=== PATIENT | female | born 2000 | race Caucasian/White ===

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

== ENCOUNTER 2018-01-29 16:46 | Emergency (ER) | payer OTHER ==
[2018-01-29] MEDS ORDERED: SODIUM CHLORIDE 0.9% 1,000 ML IV STA (19:10)
--- NOTE | 2018-01-29 19:20 | ED ---
General Adult HPI - General Chief complaint: Abdominal Pain Stated complaint: abd pain, Time Seen by Provider: 01/29/18 19:01 Source: patient, RN notes reviewed Mode of arrival: wheelchair Limitations: no limitations - History of Present Illness Initial comments: 17-year-old female presents to the emergency department for a chief complaint of abdominal pain 3 days with . Patient does have a history of a miscarriage at 4 months about one year ago. Patient describes the pain as a sharp cramping pain in the bilateral lower abdomen. Patient states the pain changes from an 8 to a 9 out of 10. Patient denies any vaginal bleeding whatsoever. Patient denies any vaginal discharge. Patient denies any urinary symptoms or pain with urination. Patient last had a normal bowel movement today. Patient denies diarrhea. Patient states her last menstrual cycle was the end of November. Patient states she does not have insurance so has not seen an OB. Patient states she has a prescription for vitamins but has not filled it because she has no insurance. Patient states she does not want to take any medications including Tylenol in her .Patient has no other complaints at this time including shortness of breath, chest pain, abdominal pain, nausea or vomiting, headache, or visual changes. - Related Data Previous Rx's Medication Instructions Recorded Cephalexin [Keflex] 500 mg PO Q6H 10 Days capsule 01/29/18 Allergies Allergy/AdvReac Type Severity Reaction Status Date / Time No Known Allergies Allergy Verified 01/29/18 17:11 Review of Systems ROS Statement: Those systems with pertinent positive or pertinent negative responses have been documented in the HPI. ROS Other: All systems not noted in ROS Statement are negative. Past Medical History Past Medical History: Coronary Artery Disease (CAD) History of Any Multi-Drug Resistant Organisms: None Reported Additional Past Surgical History / Comment(s): open heart surgery Past Psychological History: No Psychological Hx Reported Smoking Status: Never smoker Past Alcohol Use History: None Reported Past Drug Use History: None Reported General Exam Limitations: no limitations General appearance: alert, in no apparent distress Head exam: Present: atraumatic, normocephalic, normal inspection Eye exam: Present: normal appearance. Absent: scleral icterus, conjunctival injection ENT exam: Present: normal exam, mucous membranes moist Neck exam: Present: normal inspection, full ROM. Absent: tenderness, meningismus, lymphadenopathy Respiratory exam: Present: normal lung sounds bilaterally. Absent: respiratory distress, wheezes, rales, rhonchi, stridor Cardiovascular Exam: Present: regular rate, normal rhythm, normal heart sounds. Absent: systolic murmur, diastolic murmur, rubs, gallop, clicks GI/Abdominal exam: Present: soft, tenderness (RLQ and LLQ tenderness. suprapubic tenderness.), normal bowel sounds. Absent: distended, guarding, rebound, rigid, other (negative obturator sign, negative psoas sign. Negative Jiménez sign.) External exam: Present: normal external exam. Absent: erythema, swelling, lesions, lacerations, ecchymosis Speculum exam: Present: normal speculum exam, other (cervical os appears closed) . Absent: erythema, vaginal discharge, cervical discharge, vaginal bleeding, foreign body, tissue, laceration Back exam: Absent: CVA tenderness (R), CVA tenderness (L) Neurological exam: Present: alert, oriented X3, CN II-XII intact Psychiatric exam: Present: normal affect, normal mood Course Vital Signs 01/29/18 01/29/18 17:09 19:28 Temperature 98.5 F Pulse Rate 87 76 Respiratory 18 16 Rate Blood Pressure 109/72 106/72 O2 Sat by Pulse 98 99 Oximetry Medical Decision Making - Medical Decision Making 17-year-old female presents to the emergency department for a chief complaint of abdominal pain 3 days with . Patient states her last menstrual cycle was at the end of November. Patient states she has been nauseous and only vomited once. Patient does not want any medications for nausea or pain. Patient does have a history of miscarriage about one year ago. Patient did have a hCG on 12/27/2017 which was 407. HCG doubled to 860 two days later. Vitals are stable. Patient has mild lower abdominal tenderness with suprapubic tenderness. No vaginal bleeding noted on speculum exam. CBC within normal limits. CMP unremarkable. Patient does have a urinary tract infection according to urinalysis and will be treated with Keflex. No CVA tenderness or back pain at this time. Ultrasound shows a viable intrauterine 8 weeks with a heart rate of 168. HCG Quant 138,654. At this time patient will be discharged home with an intrauterine no vaginal bleeding with a prescription for repeat beta hCG as well as Keflex for urinary tract infection. Patient states she would like to have the beta hCG repeated because it makes her feel more comfortable. Patient educated to return to the emergency Department if she has any worsening symptoms or fevers or vaginal bleeding. - Lab Data Result diagrams: 01/29/18 20:50 01/29/18 20:50 Lab Results 01/29/18 01/29/18 01/29/18 Range/Units 19:37 19:37 20:50 WBC (4.0-11.0) k/uL RBC (3.80-5.40) m/uL Hgb (11.4-16.0) gm/dL Hct (34.0-46.0) % MCV (80.0-100.0) fL MCH (25.0-35.0) pg MCHC (31.0-37.0) g/dL RDW (11.5-15.5) % Plt Count (150-450) k/uL Neutrophils % % Lymphocytes % % Monocytes % % Eosinophils % % Basophils % % Neutrophils # (1.3-7.7) k/uL Lymphocytes # (1.0-4.8) k/uL Monocytes # (0-1.0) k/uL Eosinophils # (0-0.7) k/uL Basophils # (0-0.2) k/uL Sodium 136 L (137-145) mmol/L Potassium 4.0 (3.5-5.1) mmol/L Chloride 106 (98-107) mmol/L Carbon Dioxide 19 L (22-30) mmol/L Anion Gap 11 mmol/L BUN 6 L (7-17) mg/dL Creatinine 0.50 L (0.52-1.04) mg/dL Est GFR (CKD-EPI)AfAm >90 (>60 ml/min/1.73 sqM) Est GFR (CKD-EPI)NonAf >90 (>60 ml/min/1.73 sqM) Glucose 95 (74-99) mg/dL Calcium 9.3 (8.4-10.2) mg/dL Total Bilirubin 0.3 (0.2-1.3) mg/dL AST 24 (14-36) U/L ALT 17 (9-52) U/L Alkaline Phosphatase 61 (38-126) U/L Total Protein 7.2 (6.3-8.2) g/dL Albumin 4.4 (3.5-5.0) g/dL Amylase 55 (30-110) U/L Lipase 71 (23-300) U/L HCG, Quant 959315.0 mIU/mL Urine Color Yellow Urine Appearance Cloudy H (Clear) Urine pH 6.0 (5.0-8.0) Ur Specific [place] 1.015 (1.001-1.035) Urine Protein Trace H (Negative) Urine Glucose (UA) Negative (Negative) Urine Ketones Negative (Negative) Urine Blood Moderate H (Negative) Urine Nitrite Negative (Negative) Urine Bilirubin Negative (Negative) Urine Urobilinogen <2.0 (<2.0) mg/dL Ur Leukocyte Esterase Large H (Negative) Urine RBC 48 H (0-5) /hpf Urine WBC 175 H (0-5) /hpf Ur Squamous Epith Cells 3 (0-4) /hpf Urine Mucus Moderate H (None) /hpf Urine HCG, Qual Detected (Not Detectd) 01/29/18 Range/Units 20:50 WBC 9.5 (4.0-11.0) k/uL RBC 4.77 (3.80-5.40) m/uL Hgb 14.0 (11.4-16.0) gm/dL Hct 41.7 (34.0-46.0) % MCV 87.6 (80.0-100.0) fL MCH 29.5 (25.0-35.0) pg MCHC 33.6 (31.0-37.0) g/dL RDW 12.9 (11.5-15.5) % Plt Count 274 (150-450) k/uL Neutrophils % 78 % Lymphocytes % 14 % Monocytes % 5 % Eosinophils % 2 % Basophils % 0 % Neutrophils # 7.4 (1.3-7.7) k/uL Lymphocytes # 1.4 (1.0-4.8) k/uL Monocytes # 0.5 (0-1.0) k/uL Eosinophils # 0.2 (0-0.7) k/uL Basophils # 0.0 (0-0.2) k/uL Sodium (137-145) mmol/L Potassium (3.5-5.1) mmol/L Chloride (98-107) mmol/L Carbon Dioxide (22-30) mmol/L Anion Gap mmol/L BUN (7-17) mg/dL Creatinine (0.52-1.04) mg/dL Est GFR (CKD-EPI)AfAm (>60 ml/min/1.73 sqM) Est GFR (CKD-EPI)NonAf (>60 ml/min/1.73 sqM) Glucose (74-99) mg/dL Calcium (8.4-10.2) mg/dL Total Bilirubin (0.2-1.3) mg/dL AST (14-36) U/L ALT (9-52) U/L Alkaline Phosphatase (38-126) U/L Total Protein (6.3-8.2) g/dL Albumin (3.5-5.0) g/dL Amylase (30-110) U/L Lipase (23-300) U/L HCG, Quant mIU/mL Urine Color Urine Appearance (Clear) Urine pH (5.0-8.0) Ur Specific [place] (1.001-1.035) Urine Protein (Negative) Urine Glucose (UA) (Negative) Urine Ketones (Negative) Urine Blood (Negative) Urine Nitrite (Negative) Urine Bilirubin (Negative) Urine Urobilinogen (<2.0) mg/dL Ur Leukocyte Esterase (Negative) Urine RBC (0-5) /hpf Urine WBC (0-5) /hpf Ur Squamous Epith Cells (0-4) /hpf Urine Mucus (None) /hpf Urine HCG, Qual (Not Detectd) Disposition Clinical Impression: Abdominal pain, Intrauterine Disposition: HOME SELF-CARE Condition: Good Instructions: Abdominal Pain in (ED) Additional Instructions: Please repeat beta hCG in 2 days. Please follow-up with OB in 1-2 days. Take vitamins. Return to the emergency department if you have any worsening symptoms or vaginal bleeding. Prescriptions: Cephalexin [Keflex] 500 mg PO Q6H 10 Days capsule Is patient prescribed a controlled substance at d/c from ED?: No Referrals: Ramona Powell MD [Primary Care Provider] - 1-2 days Tika Mak DO [Doctor of Osteopathic Medicine] - 1-2 days Time of Disposition: 23:17
[2018-01-29 19:29] VITALS: RESP 16
[2018-01-29 20:34] LABS: Appearance,Urine Cloudy (Clear); Bilirubin,Urine Negative (Negative); Blood,Urine Moderate (Negative); Color,Urine Yellow; Glucose,Urine (UA) Negative (Negative); Ketones,Urine Negative (Negative); Leukocyte Esterase,Urine Large (Negative); Mucus,Urine Moderate /hpf; Nitrite,Urine Negative (Negative); Protein,Urine Trace (Negative); RBC,Urine 48 /hpf (0-5); Specific Gravity,Urine 1.015 (1.001-1.035); Squamous Epithelial Cell,Urine 3 /hpf (0-4); Urobilinogen,Urine <2.0 mg/dL (<2.0); WBC,Urine 175 /hpf (0-5)
[2018-01-29 20:57] LABS: Basophils % (A) 0 %; Eosinophils # (A) 0.2 k/uL (0-0.7); Eosinophils % (A) 2 %; HCT 41.7 % (34.0-46.0); Lymphocytes # (A) 1.4 k/uL (1.0-4.8); Lymphocytes % (A) 14 %; MCH 29.5 pg (25.0-35.0); MCHC 33.6 g/dL (31.0-37.0); MCV 87.6 fL (80.0-100.0); Mean Platelet Volume 6.6; Monocytes # (A) 0.5 k/uL (0-1.0); Monocytes % (A) 5 %; Neutrophils # (A) 7.4 k/uL (1.3-7.7); Neutrophils % (A) 78 %; Platelet Count 274 k/uL (150-450); RBC 4.77 m/uL (3.80-5.40); RDW 12.9 % (11.5-15.5); WBC 9.5 k/uL (4.0-11.0)
[2018-01-29 21:21] LABS: ALT 17 U/L (9-52); AST 24 U/L (14-36); Albumin 4.4 g/dL (3.5-5.0); Alkaline Phosphatase 61 U/L (38-126); Amylase 55 U/L (30-110); Anion Gap 11 mmol/L; Blood Urea Nitrogen 6 mg/dL (7-17); Calcium 9.3 mg/dL (8.4-10.2); Carbon Dioxide 19 mmol/L (22-30); Chloride 106 mmol/L (98-107); Glucose 95 mg/dL (74-99); Lipase 71 U/L (23-300); Sodium 136 mmol/L (137-145); Total Bilirubin 0.3 mg/dL (0.2-1.3); Total Protein 7.2 g/dL (6.3-8.2)
--- NOTE | 2018-01-29 21:30 | US ---
EXAMINATION TYPE: Transabdominal DATE OF EXAM: 09/25/17 COMPARISON: NONE CLINICAL HISTORY: Pain. Cramping EXAM PERFORMED: Transvaginal (TV) and Transabdominal (TA) EXAM MEASUREMENTS: GESTATIONAL AGE / DATING Physician Established: Not yet established Dates by LMP: ( 5 weeks/5 days) EDC: 09/26/2018 Dates by First Scan: Unable to date by first scan. Dates by Current Scan for: (8 weeks/4 days) EDC: 09/06/2018 MATERNAL ANATOMY Uterus: 9.4 x 5.9 x 8.4 cm Left Ovary: 3.4 x 1.7 x 2.9 cm Post CDS / Adnexa: wnl Presence of free fluid: no Presence of corpus luteal cyst: no Presence of subchorionic bleed: no GESTATION / SURVEY CRL: 2.0 cm (8 weeks/4 days) Yolk Sac (normal less than 6mm): 3mm Heart Rate: 168 bpm Rhythm: Normal IUP: Viable IUP Beta HcG (if available): Not available at this time IMPRESSION: VIABLE IUP 8WKS 4DAYS HIREN 09/06/2018 HR 168 BPM
[2018-01-29 23:32] VITALS: BP 119/54; PULSE 54; TEMP 97.4
== END 2018-01-29 23:32 | disposition home or self-care (01) ==
LOC: EC 16:46
DX: O99.89 Other specified diseases and conditions complicating pregnancy, childbirth and the puerperium (principal); R10.30 Lower abdominal pain, unspecified; O21.0 Mild hyperemesis gravidarum; Z3A.08 8 weeks gestation of pregnancy
CPT/HCPCS: 36415; 76801; 76817; 80053; 81001; 81025; 82150; 83690; 84702; 85025; 96360; 99284

== ENCOUNTER → 2018-01-31 | Outpatient (CLI) | payer SELFPAY | END | disposition home or self-care (01) | LOC: LABWHC1 17:08 | PROVIDERS: ATTEND Physician Assistant Medical | DX: Z34.90 Encounter for supervision of normal pregnancy, unspecified, unspecified trimester (principal); Z3A.00 Weeks of gestation of pregnancy not specified | CPT/HCPCS: 36415; 84702 ==

== ENCOUNTER 2018-02-23 00:04 | Inpatient (IN) | payer MEDICAID, OTHER ==
[2018-02-23] MEDS ORDERED: SODIUM CHLORIDE 0.9% 1,000 ML IV ONE (01:18)
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
--- NOTE | 2018-02-23 02:08 | US ---
EXAMINATION TYPE: Transabdominal DATE OF EXAM: 09/25/17 COMPARISON: NONE CLINICAL HISTORY: Pain. Cramping and spotting today EXAM PERFORMED: Transabdominal (TA) EXAM MEASUREMENTS: GESTATIONAL AGE / DATING Physician Established: Not yet established Dates by LMP: LMP unknown Dates by First Scan: (12 weeks/1 days) EDC: 09/06/18 Dates by Current Scan for: (13 weeks/0 days) EDC: 08/31/18 MATERNAL ANATOMY Uterus: 12.0 x 7.3 x 9.6cm Right Ovary: 2.9 x 1.5 x 1.8cm Left Ovary: 3.8 x 2.2 x 1.8cm Post CDS / Adnexa: wnl Presence of free fluid: no GESTATION / SURVEY CRL: 6.6cm (13 weeks/0 days) Yolk Sac (normal less than 6mm): 0.5cm Heart Rate: 160 bpm Rhythm: Normal IUP: Viable IUP Nuchal Translucency 10-14wks (normal less than 3mm): 0.2cm Date of LMP: unknown Beta HcG (if available): Not available at this time Single viable IUP 13wks/0days with HIREN of 08/31/18 IMPRESSION: The ultrasound gestational age is 13 weeks. No complicating process seen.
[2018-02-23 02:46] LABS: Basophils % (A) 0 %; Eosinophils # (A) 0.1 k/uL (0-0.7); Eosinophils % (A) 1 %; HCT 40.2 % (34.0-46.0); Lymphocytes # (A) 1.7 k/uL (1.0-4.8); Lymphocytes % (A) 14 %; MCH 29.4 pg (25.0-35.0); MCHC 32.3 g/dL (31.0-37.0); Mean Platelet Volume 6.6; Monocytes # (A) 0.6 k/uL (0-1.0); Monocytes % (A) 5 %; Neutrophils # (A) 9.5 k/uL (1.3-7.7); Neutrophils % (A) 79 %; Platelet Count 280 k/uL (150-450); RBC 4.41 m/uL (3.80-5.40); RDW 13.6 % (11.5-15.5)
[2018-02-23 02:48] LABS: Appearance,Urine Cloudy (Clear); Bilirubin,Urine Negative (Negative); Blood,Urine Negative (Negative); Color,Urine Yellow; Glucose,Urine (UA) Negative (Negative); Ketones,Urine 4+ (Negative); Leukocyte Esterase,Urine Large (Negative); Mucus,Urine Many /hpf; Nitrite,Urine Negative (Negative); PH, Urine 5.5 (5.0-8.0); Protein,Urine 1+ (Negative); RBC,Urine 3 /hpf (0-5); Specific Gravity,Urine 1.024 (1.001-1.035); Squamous Epithelial Cell,Urine 5 /hpf (0-4); Urobilinogen,Urine <2.0 mg/dL (<2.0); WBC,Urine 60 /hpf (0-5)
[2018-02-23 02:54] LABS: ALT 34 U/L (9-52); AST 28 U/L (14-36); Alkaline Phosphatase 48 U/L (38-126); Anion Gap 12 mmol/L; Blood Urea Nitrogen 9 mg/dL (7-17); Calcium 9.3 mg/dL (8.4-10.2); Carbon Dioxide 19 mmol/L (22-30); Chloride 107 mmol/L (98-107); Glucose 73 mg/dL (74-99); Potassium 3.7 mmol/L (3.5-5.1); Sodium 138 mmol/L (137-145); Total Bilirubin 0.5 mg/dL (0.2-1.3); Total Protein 6.8 g/dL (6.3-8.2)
[2018-02-23] MEDS ORDERED: CEPHALEXIN 500 MG CAP PO STA (04:16)
[2018-02-23] MEDS ORDERED: ACETAMINOPHEN TAB 325 MG TAB PO PRN (05:11)
[2018-02-23] MEDS ORDERED: MAGNESIUM HYDROXIDE 2,400 MG/10 ML CUP PO PRN (05:11)
[2018-02-23] MEDS ORDERED: MAG HYDROX/AL HYDROX/SIMETH 30 ML CUP PO PRN (05:11)
[2018-02-23 05:56] LABS: Amphetamine Screen,Urine Not Detected (NotDetected); Barbiturate Screen,Urine Not Detected (NotDetected); Benzodiazepines Screen,Urine Not Detected (NotDetected); Cocaine Screen,Urine Not Detected (NotDetected); Methadone Screen, Urine Not Detected (NotDetected); Opiate Screen,Urine Not Detected (NotDetected); Oxycodone Screen, Urine Not Detected (NotDetected); Phencyclidine Screen,Urine Not Detected (NotDetected); Tricyclic Antidepressant,Urine Not Detected (NotDetected); Urn Cannabinoid Scrn Not Detected (NotDetected)
[2018-02-23 06:20] VITALS: BMI 29.8
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
[2018-02-23] MEDS: CEPHALEXIN 500 MG CAP PO SCH ×3 (09:51→21:07)
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
[2018-02-23] MEDS: PRENATAL VIT-IRON-FOLIC ACID 1 EACH CAP PO SCH (12:34)
[2018-02-23] MEDS ORDERED: DOCUSATE 100 MG CAP PO PRN (15:16)
[2018-02-23 16:26] VITALS: RESP 16
[2018-02-24] MEDS: CEPHALEXIN 500 MG CAP PO SCH ×3 (09:19→21:04)
[2018-02-24] MEDS: PRENATAL VIT-IRON-FOLIC ACID 1 EACH CAP PO SCH (13:19)
--- NOTE | 2018-02-24 19:09 | P.PN ---
Progress Note - Text Progress Note Date: 02/24/18 IDENTIFICATION DATA 17 year old woman, 13 weeks , presented to the ER with suicidal ideations and multiple stressors. She needs assistance with housing/placement. INTERVAL HISTORY: She is currently being monitored without any medications. She denies current suicidal or homicidal ideations. She reports feeling better and safe in the hospital. She is hopeful that the social media developer will be able to find her a place. She is willing to follow up with out patient mental health team following her discharge. She reports good sleep and appetite. She attends and participates in unit activities. No behavior problems reported. MENTAL STATUS EXAMINATION: Patient is 17 year old woman appears in fair grooming and hygiene. Her speech and thought process are linear and goal directed. mood is reported as better and affect appropriate. She denies auditory or visual hallucinations. denies paranoia. She is alert and oriented X 4. insight and judgment are improving. denies current suicidal or homicidal ideations. ASSESSMENT AND PLAN: Continue current treatment.
[2018-02-25 07:22] LABS: C. trachomatis,PCR Negative (Neg,Equiv); Chlamydia trachomatis Source Vagina; N. gonorrhoeae,PCR Negative (Neg,Equiv); Neisseria Source Vagina
[2018-02-25] MEDS: CEPHALEXIN 500 MG CAP PO SCH ×3 (09:22→21:02)
[2018-02-25] MEDS: PRENATAL VIT-IRON-FOLIC ACID 1 EACH CAP PO SCH (12:28)
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
[2018-02-26 06:41] VITALS: BP 114/55; PULSE 78; TEMP 98.5
[2018-02-26] MEDS: CEPHALEXIN 500 MG CAP PO SCH ×2 (09:23→15:38)
[2018-02-26] MEDS: PRENATAL VIT-IRON-FOLIC ACID 1 EACH CAP PO SCH (12:38)
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
== END 2018-02-26 16:25 | disposition home or self-care (01) | DRG 781 ==
LOC: EC 00:04 → 3MHU 05:06
PROVIDERS: ADMIT Psychiatry & Neurology Psychiatry; ATTEND Psychiatry & Neurology Psychiatry
DX: O99.341 Other mental disorders complicating pregnancy, first trimester (principal); O23.11 Infections of bladder in pregnancy, first trimester; Z3A.13 13 weeks gestation of pregnancy; Z81.1 Family history of alcohol abuse and dependence; F43.10 Post-traumatic stress disorder, unspecified; F43.21 Adjustment disorder with depressed mood; F60.3 Borderline personality disorder; Z91.410 Personal history of adult physical and sexual abuse; Z62.810 Personal history of physical and sexual abuse in childhood; S41.112A Laceration without foreign body of left upper arm, initial encounter; X78.1XXA Intentional self-harm by knife, initial encounter
CPT/HCPCS: 36415; 76801; 76813; 80053; 80306; 81001; 81025; 84443; 85025; 86900; 86901; 87070; 87077; 87086; 87186; 87205; 87491; 87591; 87808; 96360; 99285

== ENCOUNTER 2018-08-10 02:10 | Outpatient (CLI) | payer OTHER ==
[2018-08-10 02:33] VITALS: BP 130/66; PULSE 71; RESP 15; TEMP 97.7
--- NOTE | 2018-08-16 10:42 | P.MSEPDOC ---
Presenting Problems - Arrival Data Date of Arrival on Unit: 08/10/18 Time of Arrival on Unit: 02:10 Mode of Transport: Wheelchair - Complaint OB-Reason for Admission/Chief Complaint: Possible Onset of Labor, Other Comment: Pt states that the contractions started around 0145 and that they are every 5-10 mins. She also states that she lost her mucous plug Medical History - Information : 2 Para: 0 Term: 0 : 0 Abortions: Spontaneous or Elective: 1 Number of Living Children: 0 - Gestational Age Gestational Age by HIREN (wks/days): 37 Weeks and 0 Days Review of Systems - Review of Systems Constitutional: No problems Breast: No problems ENT: No problems Cardiovascular: No problems Respiratory: No problems Gastrointestinal: No problems Genitourinary: No problems Musculoskeletal: No problems Neurological: No problems Skin: No problems Vital Signs - Temperature Temperature: 97.7 F Temperature Source: Temporal Artery Scan - Pulse Pulse Oximetery Pulse Rate: 71 Pulse Assessment Method: Pulse Oximetry - Respirations Respiratory Rate: 15 Oxygen Delivery Method: Room Air O2 Sat by Pulse Oximetry: 96 - Blood Pressure Right Arm Blood Pressure: 130/66 Blood Pressure Mean: 87 Blood Pressure Source: Automatic Cuff Medical Screen Scoring (Pre) - Cervical Exam Dilation: 1-3 cm = 1 Effacement: More than 50% = 2 Membranes: Intact - Uterine Contractions Frequency: > 5 minutes apart = 1 Duration: N/A Intensity: N/A - Maternal Vital Signs Maternal Temperature: N/A Maternal Blood Pressure: N/A Signs of Preeclampsia: N/A Maternal Respirations: N/A - Pain Assessment Pain Location and Character: Abdomen Pain Scale Used: Numeric (1 - 10) Pain Intensity: 6 Pain Management Goal: 10 Pain Description: *Acute, Cramping Pain Radiation Location: none Pain Frequency: Intermittent Pain Duration: 45 Pain Duration Units: Minutes Pain Behavior: Facial Grimacing, Fidgeting Pain Aggravating Factors: Contractions - Maternal Trauma Maternal Trauma: N/A - Assessment Baseline FHR: 135 Heart Rate - NICHD Category: Category I (Normal) = 0 NST: Reactive Position: N/A Station: N/A - Total Score Total Score (Pre): 4 - Level of Risk Level of Risk: Low (0-5) Medical Screen Scoring (Post) - Cervical Exam Dilation: 1-3 cm = 1 Effacement: More than 50% = 2 Membranes: Intact - Uterine Contractions Frequency: > 5 minutes apart = 1 Duration: N/A Intensity: N/A - Maternal Vital Signs Maternal Temperature: N/A Maternal Blood Pressure: N/A Signs of Preeclampsia: N/A Maternal Respirations: N/A - Maternal Trauma Maternal Trauma: N/A - Assessment Heart Rate: 135 Heart Rate - NICHD Category: Category I (Normal) = 0 NST: Reactive Position: N/A Station: N/A - Total Score Total Score (Post): 4 - Post Treatment Level of Risk Post Treatment Level of Risk: Low (0-5) Physician Notification (Post) - Physician Notified Physician Notified Date: 08/10/18 Physician Notified Time: 03:35 Physician/Practitioner Notified:: Dr Hi New Order Received: Yes Disposition - Disposition OB Disposition: Physician follow up in office, Discharge to home Discharge Date: 08/10/18 Discharge Time: 03:45 I agree with the RN Medical Screening Exam: Yes Risk & Benefit of care provided described in d/c instruction: Yes Diagnosis: FALSE LABOR BEFORE 37 COMPLETED WEEKS OF GEST, THIRD TRI
== END 2018-08-10 03:45 | disposition home or self-care (01) ==
LOC: FBPOP 02:10
PROVIDERS: ATTEND Obstetrics & Gynecology
DX: O47.1 False labor at or after 37 completed weeks of gestation (principal); Z3A.37 37 weeks gestation of pregnancy
CPT/HCPCS: 59025; G0463; 99213

== ENCOUNTER 2018-09-20 19:40 | Emergency (ER) | payer OTHER ==
[2018-09-20 19:51] VITALS: BP 105/53; PULSE 53; RESP 16; TEMP 97.9
[2018-09-20] MEDS ORDERED: CEPHALEXIN 500MG STARTER PACK 4 CAP BTL PO STA (20:40)
--- NOTE | 2018-09-20 20:41 | ED ---
Recheck HPI - General Chief Complaint: Recheck/Abnormal Lab/Rx Stated Complaint: Incision leaking Time Seen by Provider: 09/20/18 19:53 Source: patient Mode of arrival: ambulatory Limitations: no limitations - History of Present Illness Initial Comments: A1 female with recent section presenting today for chief complaint of drainage from . Patient states she had a performed on August 31. She states this was performed by Dr. Grimes. She states she has had pain since the , she states she felt this was consistent with recent surgery. Patient states the pain has been improving since the surgery. Patient states today she noticed some drainage from the incision site and presented for evaluation. Patient denies increase in pain, surrounding redness fever chills or night sweats. Patient denies any feeling general malaise. Remaining review of systems negative, Patient denies any recent shortness of breath, chest pain, back pain, abdominal pain, nausea or vomiting, numbness or tingling, dysuria or hematuria, constipation or diarrhea, headaches or visual changes, or any other complaints. Upon arrival patient is afebrile appearing well and nontoxic. - Related Data Home Medications Medication Instructions Recorded Confirmed Pnv,Calcium 72/Iron/Folic Acid 1 tab PO DAILY 08/10/18 09/20/18 [ Plus Tablet] Previous Rx's Medication Instructions Recorded Cephalexin [Keflex] 500 mg PO Q6HR 7 Days #28 cap 09/20/18 Allergies Allergy/AdvReac Type Severity Reaction Status Date / Time No Known Allergies Allergy Verified 09/20/18 20:43 Review of Systems ROS Statement: Those systems with pertinent positive or pertinent negative responses have been documented in the HPI. ROS Other: All systems not noted in ROS Statement are negative. Past Medical History Past Medical History: Coronary Artery Disease (CAD) History of Any Multi-Drug Resistant Organisms: None Reported Additional Past Surgical History / Comment(s): open heart surgery for PFO repair Past Psychological History: No Psychological Hx Reported Smoking Status: Never smoker - Past Family History Family Additional Family Medical History / Comment(s): Patient denies history of CAD General Exam - General Exam Comments Initial Comments: General: The patient is awake and alert, in no distress, and does not appear acutely ill. Eye: Pupils are equal, round and reactive to light, extra-ocular movements are intact. No nystagmus. There is normal conjunctiva bilaterally. No signs of icterus. Cardiovascular: There is a regular rate and rhythm. No murmur, rub or gallop is appreciated. Respiratory: Lungs are clear to auscultation, respirations are non-labored, breath sounds are equal. No wheezes, stridor, rales, or rhonchi. Gastrointestinal: Soft, non-distended, non-tender abdomen without masses or organomegaly noted. There is no rebound or guarding present. Bowel sounds are unremarkable. Musculoskeletal: Normal ROM, no tenderness. Strength 5/5. Sensation intact. Pulses equal bilaterally 2+. Neurological: A&O x 3. CN II-XII intact, There are no obvious motor or sensory deficits. Coordination appears grossly intact. Speech is normal. Skin: Skin is warm and dry and no rashes or lesions are noted. Horizontal incision in the lower abdominal region, a small amount of purulent drainage, no significant surrounding erythema. No tenderness to palpation. No abdominal tenderness. Psychiatric: Cooperative, appropriate mood & affect, normal judgment. Limitations: no limitations Course Vital Signs 09/20/18 19:46 Temperature 97.9 F Pulse Rate 53 L Respiratory 16 Rate Blood Pressure 105/53 O2 Sat by Pulse 96 Oximetry Medical Decision Making - Medical Decision Making Well-appearing 18-year-old female presenting for incision inspection. There is a small amount of purulent drainage, no significant soft tissue erythema or pain. Patient denies increasing pain since surgery. Patient states she has had some discomfort but felt this is postsurgical. No pain out of proportion on examination. Small amount of purulent drainage was cultured. Patient was placed on antibiotic orally, Keflex. This is safe and both breast-feeding. Patient was instructed to follow-up with DIP TUBE ASSEMBLER MACHINE on Sunday or Sunday. I discussed return for worsening symptoms including redness, increasing drainage, increasing abdominal pain, fever or chills night sweats or general malaise. Patient verbalized understanding. I did discuss the case is high provider Dr. Long was agreeable patient plan of care as well as discharge. Disposition Clinical Impression: Superficial incisional surgical site infection Disposition: HOME SELF-CARE Condition: Good Instructions (If sedation given, give patient instructions): Surgical Site Infections (ED) Additional Instructions: Please use medication as discussed. Please follow-up with OBGYN on Sunday or Sunday. Please return to emergency room if the symptoms increase or worsen or for any other concerns, including fever, increasing pain, increasing redness. Prescriptions: Cephalexin [Keflex] 500 mg PO Q6HR 7 Days #28 cap Is patient prescribed a controlled substance at d/c from ED?: No Referrals: Ramona Powell MD [Primary Care Provider] - 1-2 days
== END 2018-09-20 20:55 | disposition home or self-care (01) ==
LOC: EC 19:40
DX: O86.00 Infection of obstetric surgical wound, unspecified (principal)
CPT/HCPCS: 87070; 87205; 99283

== ENCOUNTER 2018-12-31 20:50 | Emergency (ER) | payer OTHER ==
[2018-12-31 20:57] VITALS: RESP 18; TEMP 98.1
--- NOTE | 2018-12-31 23:20 | ED ---
General Adult HPI - General Chief complaint: Urogenital Stated complaint: Cramping, bleeding, Time Seen by Provider: 12/31/18 21:09 Source: patient, RN notes reviewed, old records reviewed Limitations: no limitations - History of Present Illness Initial comments: 18-year-old female patient who is reportedly , her last menstrual period on 11/16/18 presents ED with approximate 4 days abdominal cramping suprapubically as well as vaginal bleeding. She denies any other complaints at this time. Patient states that she believes her blood type is O+. Denies any chest pain, shortness of breath, fevers chills, nausea vomiting diarrhea. Systemic: Pt denies fatigue, fever/chills, rash. Pt denies weakness, night sweats, weight loss. Neuro: Pt denies headache, visual disturbances, syncope or pre-syncope. HEENT: Pt denies ocular discharge or irritation, otalgia, rhinorrhea, pharyngitis or notable lymphadenopathy. Cardiopulmonary: Pt denies chest pain, SOB, heart palpitations, dyspnea on exertion. Abdominal/GI: Pt denies n/v/d. : Pt denies dysuria, burning w/ urination, frequency/urgency. Denies new onset urinary or bowel incontinence. MSK: Pt denies myalgia, loss of strength or function in extremities. Neuro: Pt denies new onset weakness, paresthesias. - Related Data Home Medications Medication Instructions Recorded Confirmed Pnv,Calcium 72/Iron/Folic Acid 1 tab PO DAILY 08/10/18 09/20/18 [ Plus Tablet] Previous Rx's Medication Instructions Recorded Cephalexin [Keflex] 500 mg PO Q6HR 7 Days #28 cap 09/20/18 Cephalexin [Keflex] 500 mg PO Q12HR 7 Days #14 cap 01/01/19 Allergies Allergy/AdvReac Type Severity Reaction Status Date / Time No Known Allergies Allergy Verified 12/31/18 20:57 Review of Systems ROS Statement: Those systems with pertinent positive or pertinent negative responses have been documented in the HPI. ROS Other: All systems not noted in ROS Statement are negative. Past Medical History Past Medical History: Coronary Artery Disease (CAD) History of Any Multi-Drug Resistant Organisms: MRSA Date of last positivie culture/infection: 09/20/18 MDRO Source:: ABDOMIN Past Surgical History: Section Additional Past Surgical History / Comment(s): open heart surgery for PFO repair Past Psychological History: No Psychological Hx Reported Smoking Status: Never smoker Past Alcohol Use History: None Reported Past Drug Use History: None Reported - Past Family History Family Additional Family Medical History / Comment(s): Patient denies history of CAD General Exam - General Exam Comments Initial Comments: Constitutional: NAD, AOX3, Pt has pleasant affect. HEENT: NC/AT, trachea midline, neck supple, no lymphadenopathy. Posterior pharynx non erythematous, without exudates. External ears appear normal, without discharge. Mucous membranes moist. Eyes PERRLA, EOM intact. There is no scleral icterus. No pallor noted. Cardiopulmonary: RRR, no murmurs, rubs or gallops, no JVD noted. Lungs CTAB in anterior and posterior [place]. No peripheral edema. Abdominal exam: Abdomen soft and non-distended. Abdomen mildly tender in periumbilical region. Bowel sounds active in LLQ. No hepatosplenomegaly. No ecchymosis Neuro: CN II-XII grossly intact. No nuchal rigidity. No raccon eyes, no chester sign, no hemotympanum. No cervical spinal tenderness. MSK: No posterior calf tenderness bilaterally, homans sign negative bilaterally. Posterior tibialis and radial pulse +2 bilaterally. Sensation intact in upper and lower extremities. Full active ROM in upper and lower extremities, 5/5 stregnth. Limitations: no limitations Course Vital Signs 12/31/18 20:54 Temperature 98.1 F Pulse Rate 66 Respiratory 18 Rate Blood Pressure 129/69 O2 Sat by Pulse 97 Oximetry Medical Decision Making - Medical Decision Making 18-year-old female patient who is reportedly , her last menstrual period on 11/16/18 presents ED with approximate 4 days abdominal cramping suprapubically as well as vaginal bleeding. She denies any other complaints at this time. Patient states that she believes her blood type is O+. Denies any chest pain, shortness of breath, fevers chills, nausea vomiting diarrhea. Patient also in stable, afebrile. Physical exam displayed very mild suprapubic tenderness. Multiple attempts blood draw was unable to be obtained. UA displayed asymptomatic bacteriuria. Ultrasound transvaginal displayed single intrauterine and heart rate was 79. Small subchorionic hemorrhage. Previous blood typing on 02/23/18 was O positive. She'll be discharged with Keflex for asymptomatic bacteriuria, will follow up with CAR MECHANIC HELPER tomorrow, return to ER if condition worsens in any way. Case discussed with Dr. Stout. - Lab Data Lab Results 12/31/18 12/31/18 Range/Units 23:48 23:48 Urine Color Yellow Urine Appearance Clear (Clear) Urine pH 6.5 (5.0-8.0) Ur Specific [place] 1.028 (1.001-1.035) Urine Protein Trace H (Negative) Urine Glucose (UA) Negative (Negative) Urine Ketones Negative (Negative) Urine Blood Negative (Negative) Urine Nitrite Negative (Negative) Urine Bilirubin Negative (Negative) Urine Urobilinogen <2.0 (<2.0) mg/dL Ur Leukocyte Esterase Trace H (Negative) Urine RBC <1 (0-5) /hpf Urine WBC 14 H (0-5) /hpf Ur Squamous Epith Cells 7 H (0-4) /hpf Urine Bacteria Rare H (None) /hpf Urine Mucus Many H (None) /hpf Urine HCG, Qual Detected (Not Detectd) Disposition Clinical Impression: Vaginal bleeding during , Asymptomatic bacteriuria Disposition: HOME SELF-CARE Condition: Stable Instructions (If sedation given, give patient instructions): (ED) Additional Instructions: Patient to adhere to previously discussed treatment plan and will take medication(s) as directed. Patient to follow up with PCP in 1-2 days. Patient to return to ED if symptoms do not improve. TTake antibiotics as prescribed, take prenatals as prescribed, follow up with optical technician tomorrow. Return to ER if condition worsens. Prescriptions: Cephalexin [Keflex] 500 mg PO Q12HR 7 Days #14 cap Is patient prescribed a controlled substance at d/c from ED?: No Referrals: Ramona Powell MD [Primary Care Provider] - 1-2 days
[2019-01-01 00:06] LABS: Appearance,Urine Clear (Clear); Bacteria,Urine Rare /hpf; Bilirubin,Urine Negative (Negative); Blood,Urine Negative (Negative); Color,Urine Yellow; Glucose,Urine (UA) Negative (Negative); Ketones,Urine Negative (Negative); Leukocyte Esterase,Urine Trace (Negative); Mucus,Urine Many /hpf; Nitrite,Urine Negative (Negative); PH, Urine 6.5 (5.0-8.0); Protein,Urine Trace (Negative); RBC,Urine <1 /hpf (0-5); Specific Gravity,Urine 1.028 (1.001-1.035); Squamous Epithelial Cell,Urine 7 /hpf (0-4); Urobilinogen,Urine <2.0 mg/dL (<2.0); WBC,Urine 14 /hpf (0-5)
--- NOTE | 2019-01-01 00:19 | US ---
EXAM: US Pelvis, Transvaginal CLINICAL HISTORY: ITS.REASON US Reason: Pain TECHNIQUE: Real-time transvaginal pelvic ultrasound (complete) with image documentation. Transvaginal imaging was used for better evaluation of the endometrium and adnexa. COMPARISON: No pertinent priors FINDINGS: Uterus: Measures 11.2 x 7.8 x 7.8 cm. Gestational sac identified within the endometrial cavity. Subchorionic hemorrhage, measuring approximately 1.3 x 2.7 x 0.6 cm. An embryonic pole is identified. [place]-rump length measures 2.54 cm. heart rate 179 bpm. Cervix is long and closed but contains trace fluid. Ovaries: The right ovary measures 3.3 x 2.0 x 2.2 cm. The left ovary measures 3.0 x 1.4 x 1.8 cm. The ovaries demonstrate normal color flow. Other: No free fluid is identified. No adnexal mass. Prominent left periuterine vessels. LMP: 11/16/2018 GA by LMP: 6 weeks 3 days HIREN by LMP: 08/23/2019 Average ultrasound age: 9 weeks 2 days HIREN by ultrasound: 08/03/2019 IMPRESSION: Single intrauterine with heart rate of 179 bpm. Small subchorionic hemorrhage measuring 1.3 x 2.7 x 0.6 cm.
[2019-01-01] MEDS ORDERED: CEPHALEXIN 500MG STARTER PACK 4 CAP BTL PO STA (00:57)
[2019-01-01] MEDS ORDERED: CEPHALEXIN 500 MG CAP PO STA (00:57)
[2019-01-01 01:22] VITALS: BP 104/65; PULSE 56
== END 2019-01-01 01:21 | disposition home or self-care (01) ==
LOC: EC 20:50
DX: O20.9 Hemorrhage in early pregnancy, unspecified (principal); O99.89 Other specified diseases and conditions complicating pregnancy, childbirth and the puerperium; R82.71 Bacteriuria; R10.30 Lower abdominal pain, unspecified; Z3A.09 9 weeks gestation of pregnancy; Z86.14 Personal history of Methicillin resistant Staphylococcus aureus infection
CPT/HCPCS: 76801; 76817; 81001; 81025; 99284

== ENCOUNTER → 2019-01-03 | Outpatient (CLI) | payer OTHER ==
--- NOTE | 2019-01-03 16:41 | US ---
EXAMINATION TYPE: Transabdominal DATE OF EXAM: 01/03/2019 4:16 PM COMPARISON: NONE CLINICAL HISTORY: Z34.80 Supervision of Normal . Dates EXAM PERFORMED: Transabdominal (TA) EXAM MEASUREMENTS: GESTATIONAL AGE / DATING Physician Established: Not yet established Dates by LMP: LMP doesn't correlate to first scan. Dates by First Scan: (9 weeks/5 days) EDC: 08/03/2019 Dates by Current Scan for: (9 weeks/3 days) EDC: 08/05/2019 MATERNAL ANATOMY Uterus: 7.2 x 4.7 x 2.4 cm Right Ovary: 3.4 x 1.9 x 3.0 cm Left Ovary: 2.3 x 1.1 x 2.4 cm. Post CDS / Adnexa: wnl Presence of free fluid: no Presence of corpus luteal cyst: no Presence of subchorionic bleed: Small area seen 1.2 x .6 x .6cm. GESTATION / SURVEY CRL: 2.6cm (9 weeks/3 days) Yolk Sac (normal less than 6mm): 3 mm Heart Rate: 167 bpm Rhythm: Normal IUP: Viable IUP Beta HcG (if available): Not available at this time IMPRESSION: 1. Single intrauterine gestation estimated at 9 weeks 3 days gestation based on the crown-rump length . Cardiac activity measures 167 bpm.
== END | disposition home or self-care (01) ==
LOC: RADUSWWP 15:46
PROVIDERS: ATTEND Obstetrics & Gynecology
DX: Z34.81 Encounter for supervision of other normal pregnancy, first trimester (principal)
CPT/HCPCS: 76801